=== PATIENT | male | born 1955 | race Caucasian/White ===

== ENCOUNTER 2021-04-20 08:49 | Inpatient (IN) | payer MEDICAID, OTHER ==
[~2021-04-20] VITALS: Ht 177.8 cm; Wt 79.7 kg
[2021-04-20] MEDS ORDERED: aspirin 325mg tablet PO ONE (09:25)
[2021-04-20 09:32] LABS: EOSINOPHILS # (AUTO) 0.2 X10'3 (0-0.9); LYMPHOCYTES # (AUTO) 2.6 X10'3 (1.1-4.8); MEAN CORPUSCULAR HEMOGLOBIN 28.8 PG (27.0-31.0); MEAN CORPUSCULAR HGB CONC 33.4 g/dL (33.0-36.5); MONOCYTES # (AUTO) 0.6 X10'3 (0-0.9); PLATELET COUNT 279 X10'3 (140-440)
[2021-04-20 09:34] LABS: BASOPHILS % (AUTO) 0.5 % (0-1); HEMATOCRIT 44.1 % (42.0-52.0); HEMOGLOBIN 14.7 g/dl (14.0-17.9); LYMPHOCYTES % (AUTO) 36.9 % (21-51); MEAN CORPUSCULAR VOLUME 86.3 FL (78-98); MONOCYTES % (AUTO) 7.9 % (2-12); NEUTROPHILS # (AUTO) 3.6 X10'3 (1.8-7.7); NEUTROPHILS % (AUTO) 51.7 % (42-75); RED BLOOD COUNT 5.11 X10'6 (4.70-6.10); RED CELL DISTRIBUTION WIDTH 13.3 % (11.5-14.5)
[2021-04-20 09:38] LABS: CHLORIDE 104 MMOL/L (99-107); GLUCOSE 145 MG/DL (70-104); POTASSIUM 4.2 MMOL/L (3.5-5.1); SODIUM 140 MMOL/L (135-145); TOTAL CARBON DIOXIDE 25.6 MMOL/L (24-32)
[2021-04-20 09:39] LABS: ALANINE AMINOTRANSFERASE 30 U/L (12-78); ALBUMIN/GLOBULIN RATIO 0.9 (1.1-1.5); ALKALINE PHOSPHATASE 96 IU/L (46-116); ANION GAP 10 (8-16); ASPARTATE AMINO TRANSFERASE 17 U/L (10-37); BILIRUBIN,TOTAL 0.5 MG/DL (0.1-1.0); BLOOD UREA NITROGEN 12 MG/DL (7-18); BUN/CREATININE RATIO 13.2 (5.4-32.0); CALCIUM 8.9 MG/DL (8.5-10.1); CREATININE 0.91 MG/DL (0.60-1.10); ETHANOL < 0.010 GM/DL (0.0-0.010); TOTAL PROTEIN 8.5 G/DL (6.4-8.2); eGFR 83 ML/MIN
[2021-04-20] MEDS ORDERED: clopidogrel 300mg tablet PO ONE (09:50)
[2021-04-20 09:56] LABS: PARTIAL THROMBOPLASTIN TIME 30 SECONDS (22-32)
[2021-04-20] MEDS ORDERED: magnesium 4gm in 100ml NS 100 ML IV PRN (10:35)
[2021-04-20] MEDS ORDERED: potassium Cl 40MEQ/1/2NS 520ml 520 ML IV PRN ×2 (10:35)
[2021-04-20] MEDS ORDERED: magnesium Cl slow-release 64mg tablet PO PRN (10:35)
[2021-04-20] MEDS: normal saline 1000ml 1,000 ML IV SCH (10:35)
[2021-04-20] MEDS ORDERED: ondansetron/PF 4mg/2ml inj IV PRN (10:35)
[2021-04-20] MEDS ORDERED: potassium Cl 20 mEq SR tablet PO PRN ×2 (10:35)
[2021-04-20] MEDS ORDERED: magnesium 2GM in 50ml NS 50 ML IV PRN (10:35)
[2021-04-20] MEDS ORDERED: acetaminophen 325mg tablet PO PRN ×2 (10:35)
[2021-04-20] MEDS ORDERED: iohexol 350MG/ML 100ml bottle IV ONE (10:44)
[2021-04-20] MEDS ORDERED: NO HOME MEDS (11:15)
[2021-04-20 13:29] LABS: URINE AMPHETAMINE SCREEN NEGATIVE (Neg); URINE BARBITUATE SCREEN NEGATIVE (Neg); URINE BENZODIAZEPINES SCREEN NEGATIVE (Neg); URINE CANNABINOID SCREEN NEGATIVE (Neg); URINE COCAINE SCREEN NEGATIVE (Neg); URINE METHADONE SCREEN NEGATIVE (Neg); URINE OPIATE SCREEN NEGATIVE (Neg); URINE PHENCYCLIDINE SCREEN NEGATIVE (Neg)
--- NOTE | 2021-04-20 17:54 | NUR ---
call qamar son in law for any queries at [phone].
--- NOTE | 2021-04-20 18:51 | NUR ---
patient has no needs at this time, eating dinner.
[2021-04-20] MEDS: K and/or MAG REPLACEMENT MC SCH (20:00)
[2021-04-20 23:00] VITALS: BP 169/89
[2021-04-21 03:00] VITALS: BP 159/88
[2021-04-21 06:00] VITALS: BP 136/71
[2021-04-21 06:07] LABS: BASOPHILS # (AUTO) 0.1 X10'3 (0-0.2); EOSINOPHILS # (AUTO) 0.2 X10'3 (0-0.9); HEMOGLOBIN 14.8 g/dl (14.0-17.9); LYMPHOCYTES # (AUTO) 2.4 X10'3 (1.1-4.8); MONOCYTES # (AUTO) 0.7 X10'3 (0-0.9)
[2021-04-21 06:09] LABS: EOSINOPHILS % (AUTO) 2.4 % (0-6); HEMATOCRIT 43.2 % (42.0-52.0); LYMPHOCYTES % (AUTO) 27.9 % (21-51); MEAN CORPUSCULAR HEMOGLOBIN 29.4 PG (27.0-31.0); MEAN CORPUSCULAR HGB CONC 34.3 g/dL (33.0-36.5); MEAN CORPUSCULAR VOLUME 85.6 FL (78-98); MEAN PLATELET VOLUME 9.6 FL (7.4-10.4); NEUTROPHILS # (AUTO) 5.3 X10'3 (1.8-7.7); NEUTROPHILS % (AUTO) 60.7 % (42-75); PLATELET COUNT 271 X10'3 (140-440); RED BLOOD COUNT 5.05 X10'6 (4.70-6.10); RED CELL DISTRIBUTION WIDTH 13.3 % (11.5-14.5); WHITE BLOOD COUNT 8.8 X10'3 (4.5-11.0)
[2021-04-21 06:22] LABS: ALBUMIN 3.7 G/DL (3.4-5.0); ANION GAP 11 (8-16); BLOOD UREA NITROGEN 14 MG/DL (7-18); BUN/CREATININE RATIO 14.9 (5.4-32.0); CHLORIDE 104 MMOL/L (99-107); CHOL/HDL RATIO 5.5 (0.00-4.99); CHOLESTEROL 237 MG/DL (0-200); CREATININE 0.94 MG/DL (0.60-1.10); GLUCOSE 141 MG/DL (70-104); HDL CHOLESTEROL 43 MG/DL (35-60); LDL CHOLESTEROL 142 MG/DL (50-100); MAGNESIUM 2.3 MG/DL (1.5-2.4); POTASSIUM 4.1 MMOL/L (3.5-5.1); SODIUM 140 MMOL/L (135-145); TOTAL CARBON DIOXIDE 24.9 MMOL/L (24-32); TRIGLYCERIDES 295 MG/DL (20-135); eGFR 80 ML/MIN
[2021-04-21] MEDS: K and/or MAG REPLACEMENT MC SCH ×2 (08:00→20:00)
[2021-04-21 09:48] LABS: LARGE PLATELETS FEW; PLATELET ESTIMATE NORMAL
[2021-04-21] MEDS ORDERED: FLU VACC QS2021-22(6MOS UP)/PF 60 MCG/0.5 ML SYRINGE IM ONE (10:00)
[2021-04-21 11:00] VITALS: BP 176/88
--- NOTE | 2021-04-21 14:41 | NUR ---
Noted pt with A1c 7.0% with no PMH per EMR. D/w RN patient's current A1c and RD unable to provide DM education until pt has been given DM dx by physician. Noted pt with elevated lipid panel, pt would benefit from heart healthy nutrition therapy education as well. Pt admit for expressive aphasia, pending MRI tomorrow per RN. Pt s/p BSS with ST recs to continue regular texture of food and liquids as pt swallowing well with food and liquids per ST note. Pt on a heart healthy diet, CHO controlled diet may not be indicated at this time as BG levels range 141-145 mg/dL since admit. No documented LBM in EMR. Will continue to follow. Recommendations: 1) Continue heart healthy diet; monitor BG levels and need for addition of CHO controlled diet 2) Bowel care PRN 3) Weekly scaled weights 4) DM education once pt has been given DM dx by physician; A1c 7.0% 5) Heart healthy nutrition therapy education given elevated lipid panel Addendum: 04/21/21 at [address] Amended: Links added.
[2021-04-21 15:00] VITALS: BP 169/90
[2021-04-21] MEDS ORDERED: lisinopril 5mg tablet PO SCH (16:45)
[2021-04-21 18:00] VITALS: BP_SYST 140; BP_SYST 160; BP_DIAS 77; BP_DIAS 91
[2021-04-21 22:00] VITALS: BP 158/87
[2021-04-22] MEDS: normal saline 1000ml 1,000 ML IV SCH (00:41)
--- NOTE | 2021-04-22 00:47 | NUR ---
Patient and son-in-law refused IVF. Patient stable . All safety in place. Will continue to monitor patient.
[2021-04-22 02:00] VITALS: BP 155/88
[2021-04-22 06:13] LABS: BASOPHILS # (AUTO) 0.1 X10'3 (0-0.2); BASOPHILS % (AUTO) 1.1 % (0-1); EOSINOPHILS # (AUTO) 0.3 X10'3 (0-0.9); EOSINOPHILS % (AUTO) 2.8 % (0-6); HEMATOCRIT 44.8 % (42.0-52.0); LYMPHOCYTES # (AUTO) 3.3 X10'3 (1.1-4.8); LYMPHOCYTES % (AUTO) 32.9 % (21-51); MEAN CORPUSCULAR HEMOGLOBIN 29.1 PG (27.0-31.0); MEAN CORPUSCULAR HGB CONC 33.5 g/dL (33.0-36.5); MEAN CORPUSCULAR VOLUME 86.8 FL (78-98); MEAN PLATELET VOLUME 10.1 FL (7.4-10.4); MONOCYTES # (AUTO) 0.8 X10'3 (0-0.9); MONOCYTES % (AUTO) 8.4 % (2-12); NEUTROPHILS # (AUTO) 5.5 X10'3 (1.8-7.7); NEUTROPHILS % (AUTO) 54.8 % (42-75); PLATELET COUNT 296 X10'3 (140-440); RED BLOOD COUNT 5.16 X10'6 (4.70-6.10); RED CELL DISTRIBUTION WIDTH 13.4 % (11.5-14.5); WHITE BLOOD COUNT 10.1 X10'3 (4.5-11.0)
--- NOTE | 2021-04-22 06:35 | NUR ---
Problems reprioritized. Patient report given, questions answered & plan of care reviewed with WIL Ramirez.
[2021-04-22 06:41] LABS: ALBUMIN 3.8 G/DL (3.4-5.0); ANION GAP 13 (8-16); BLOOD UREA NITROGEN 19 MG/DL (7-18); BUN/CREATININE RATIO 17.8 (5.4-32.0); CALCIUM 8.9 MG/DL (8.5-10.1); CHLORIDE 102 MMOL/L (99-107); CREATININE 1.07 MG/DL (0.60-1.10); GLUCOSE 132 MG/DL (70-104); MAGNESIUM 2.5 MG/DL (1.5-2.4); POTASSIUM 4.1 MMOL/L (3.5-5.1); SODIUM 139 MMOL/L (135-145); TOTAL CARBON DIOXIDE 23.6 MMOL/L (24-32); eGFR 69 ML/MIN
[2021-04-22 06:59] VITALS: BP 145/81
[2021-04-22] MEDS ORDERED: clopidogrel 75mg tablet PO SCH (08:00)
[2021-04-22] MEDS: K and/or MAG REPLACEMENT MC SCH (08:00)
[2021-04-22] MEDS ORDERED: atorvastatin 20mg tablet PO SCH (08:00)
[2021-04-22] MEDS ORDERED: aspirin 81mg, enteric-coated 1 TAB TABLET.DR PO SCH (08:00)
[2021-04-22] MEDS ORDERED: LISI10TA27 PO (09:38)
[2021-04-22] MEDS ORDERED: CLOP75TA34 PO (09:38)
[2021-04-22] MEDS ORDERED: ATOR20TA66 PO (09:38)
[2021-04-22] MEDS ORDERED: ASPI-1071 PO (09:39)
[2021-04-22] MEDS ORDERED: ACET-1008 PO (09:40)
[2021-04-22 11:00] VITALS: BP 158/86
--- NOTE | 2021-04-22 11:13 | NUR ---
Called in medications to [facility] pharmacist at [facility] [phone].
--- NOTE | 2021-04-22 12:22 | NUR ---
PAGER ID: [phone] MESSAGE: Jairo Nagel [phone] Can you clarify idf pt. is diabetic or not? A1C is 7.0 however pt. states no one has spoke to him about diabetes. Also [facility] refuses to educate pt. on diabetes unless you have already discussed with pt. Ashley [phone]
[2021-04-22] MEDS ORDERED: METF-516 PO (12:33)
[2021-04-22] MEDS ORDERED: METF-1203 PO (12:52)
[2021-04-22] MEDS ORDERED: PANT40TA54 PO (12:52)
--- NOTE | 2021-04-22 13:11 | NUR ---
DISCHARGE NOTE: Reviewed discharge paperwork extensively with pt. and son in law who is bilingual and translating for non-Lao speaking pt. Pt. does understand some Lao according to son in law. Pt. and son in law unaware of pt's 7.0 A1C however this was discussed by and primary RN. Pt. given new dx of NIDM and is prescribed metformin BID. Pt. and family educated that pt. needs to now monitor his BG and eat a snack at night before sleep. S/sx hypo/hyperglycemia discussed with couple and keg raiser in to provided lots of education on HH and CC diets. Pt. is also vegetarian. Lots of stroke prevention education provided, verbally and written. IV DC'd, pressure bandage applied, cannula intact, no s/sx bleeding noted. Family aware f/u is very important. Cm provided resources to obtain PCP and son already has plans to go to [facility] today to get application paperwork. They know MD here wants pt. to f/u with PCP in 2 weeks. Extensive written and verbal DM education provided. Pt. has gathered all of his belongs and given them to son in law to take home. Waiting to wheel pt. out of hospital.
--- NOTE | 2021-04-22 13:54 | NUR ---
DM/heart healthy consult: Pt given DM dx by physician, to discharge home on Metformin per RN. Pt seen at bedside with son markell moya present who translated, provided with written and verbal DM and heart healthy nutrition therapy educations. Son in reports he has diabetes himself so has knowledge on DM management which is evident as he was able to provide teach back of information provided. Jean moya appears to have a good understanding of what was discussed and states he will further work with pt regarding diet modifications. All questions were answered at this time. RD contact information provided and pt/family encouraged to reach out for further questions. Will remain available. Addendum: 04/22/21 at [address] Amended: Links added.
--- NOTE | 2021-04-22 13:59 | NUR ---
Pt. refused w/c but was escorted out of hospital with son in law. Addendum: 04/22/21 at 1402 by Ashley Hansen RN tele monitor removed and returned to [facility]
[2021-04-23] MEDS ORDERED: lisinopril 10 MG tablet PO SCH (08:00)
== END 2021-04-22 14:07 | disposition home or self-care (01) | DRG 45 ==
LOC: ER 08:51 → ED HOLD 10:33 → UNDOADMIN 10:33 → ED HOLD 10:36 → PCU 3S 22:20
PROVIDERS: ADMIT Internal Medicine; ATTEND Internal Medicine
PROC: B3251ZZ Computerized Tomography (CT Scan) of Bilateral Common Carotid Arteries using Low Osmolar Contrast (ICD-10-PCS; principal; 2021-04-20)
PROC: B32G1ZZ Computerized Tomography (CT Scan) of Bilateral Vertebral Arteries using Low Osmolar Contrast (ICD-10-PCS; 2021-04-20)
PROC: B32R1ZZ Computerized Tomography (CT Scan) of Intracranial Arteries using Low Osmolar Contrast (ICD-10-PCS; 2021-04-20)
PROC: B3281ZZ Computerized Tomography (CT Scan) of Bilateral Internal Carotid Arteries using Low Osmolar Contrast (ICD-10-PCS; 2021-04-20)
DX: I63.81 Other cerebral infarction due to occlusion or stenosis of small artery (principal); R47.01 Aphasia; M17.12 Unilateral primary osteoarthritis, left knee; I10 Essential (primary) hypertension; E78.5 Hyperlipidemia, unspecified; E11.65 Type 2 diabetes mellitus with hyperglycemia; R47.81 Slurred speech; Z79.899 Other long term (current) drug therapy; G43.809 Other migraine, not intractable, without status migrainosus
CPT/HCPCS: 36415; 70450; 70496; 70498; 70551; 71045; 73564; 80048; 80053; 80061; 80305; 80320; 83036; 83735; 85008; 85025; 85610; 85730; 92508; 92616; 93005; 97161; 97530; 99285; G0378; Q9967

== ENCOUNTER 2023-08-19 13:09 | Emergency (ER) | payer MEDICAID, OTHER ==
[~2023-08-19] VITALS: Ht 175.3 cm; Wt 73.6 kg
[~2023-08-19 13:09] MED LIST: ASPI-1071 PO; ATOR20TA66 PO; CLOP75TA34 PO; LISI10TA27 PO; PANT40TA54 PO
[2023-08-19 13:12] VITALS: BP 150/76; PULSE 86; TEMP 98; O2SAT 96
[2023-08-19] MEDS: HYDROcodone/acetaminophen 5mg/325mg tablet PO ONE (14:06)
[2023-08-19 14:07] VITALS: RESP 16
[2023-08-19] MEDS: ketorolac tromethamine 15mg/ml inj. IM ONE (14:07)
[2023-08-19] MEDS ORDERED: NAPR-56 PO (14:10)
[2023-08-19] MEDS ORDERED: HYDR-3965 PO (14:10)
== END 2023-08-19 14:25 | disposition home or self-care (01) ==
LOC: ER 13:09
DX: S83.92XA Sprain of unspecified site of left knee, initial encounter (principal); X50.1XXA Overexertion from prolonged static or awkward postures, initial encounter; Y93.89 Activity, other specified; Y92.89 Other specified places as the place of occurrence of the external cause; Y99.8 Other external cause status
CPT/HCPCS: 29530; 73564; 96372; 99284; J1885

== ENCOUNTER 2024-05-27 22:58 | Emergency (ER) | payer MEDICAID ==
[~2024-05-27] VITALS: Ht 172.7 cm; Wt 72.9 kg
[2024-05-27 23:29] LABS: BASOPHILS # (AUTO) 0.1 X10'3 (0-0.2); BASOPHILS % (AUTO) 0.9 % (0-1); EOSINOPHILS % (AUTO) 0.3 % (0-6); HEMATOCRIT 37.8 % (42.0-52.0); LYMPHOCYTES # (AUTO) 2.8 X10'3 (1.1-4.8); LYMPHOCYTES % (AUTO) 20.3 % (21-51); MEAN CORPUSCULAR HEMOGLOBIN 27.8 PG (27.0-31.0); MEAN CORPUSCULAR HGB CONC 31.6 g/dL (33.0-36.5); MEAN CORPUSCULAR VOLUME 87.9 FL (78-98); MEAN PLATELET VOLUME 8.5 FL (7.4-10.4); MONOCYTES # (AUTO) 0.7 X10'3 (0-0.9); MONOCYTES % (AUTO) 4.9 % (2-12); NEUTROPHILS # (AUTO) 10.1 X10'3 (1.8-7.7); NEUTROPHILS % (AUTO) 73.6 % (42-75); PLATELET COUNT 411 X10'3 (140-440); RED CELL DISTRIBUTION WIDTH 13.3 % (11.5-14.5); WHITE BLOOD COUNT 13.7 X10'3 (4.5-11.0)
[2024-05-27] MEDS ORDERED: DOCU-148 PO (23:42)
[2024-05-27] MEDS ORDERED: TRAZ-251 PO (23:42)
[2024-05-27 23:47] LABS: ALANINE AMINOTRANSFERASE 20 U/L (12-78); ALBUMIN 3.7 G/DL (3.4-5.0); ALBUMIN/GLOBULIN RATIO 0.8 (1.1-1.5); ALKALINE PHOSPHATASE 113 IU/L (46-116); ANION GAP 10 (8-16); ASPARTATE AMINO TRANSFERASE 13 U/L (10-37); BILIRUBIN,TOTAL 0.4 MG/DL (0.1-1.0); BLOOD UREA NITROGEN 17 MG/DL (7-18); BUN/CREATININE RATIO 19.3 (10.0-20.0); CALCIUM 9.3 MG/DL (8.5-10.1); CHLORIDE 96 MMOL/L (99-107); CREATININE 0.88 MG/DL (0.60-1.10); GLUCOSE 161 MG/DL (70-104); POTASSIUM 4.3 MMOL/L (3.5-5.1); SODIUM 131 MMOL/L (135-145); TOTAL PROTEIN 8.2 G/DL (6.4-8.2); eCRCL 76 ML/MIN; eGFR 86 ML/MIN
[2024-05-27 23:49] LABS: D-DIMER 4.45 MG/L FEU (0-0.50)
[2024-05-27 23:55] LABS: PRO BRAIN NATRIURETIC PEPTIDE < 30 PG/ML (0-125)
[2024-05-28 00:31] VITALS: BP 165/89; PULSE 75; RESP 15; TEMP 98.7; O2SAT 100
[2024-05-28] MEDS ORDERED: TRAZ-251 PO (13:19)
[2024-05-28] MEDS ORDERED: DOCU-148 PO (13:19)
== END 2024-05-28 00:57 | disposition home or self-care (01) ==
LOC: ER 22:59
DX: I10 Essential (primary) hypertension (principal); G47.00 Insomnia, unspecified; K59.03 Drug induced constipation; Z79.82 Long term (current) use of aspirin; Z79.899 Other long term (current) drug therapy
CPT/HCPCS: 36415; 71045; 80053; 83880; 84484; 85025; 85379; 93005; 99285